=== PATIENT | female | born 1965 | race American Indian/Alaskan Native ===

== ENCOUNTER 2021-04-23 00:13 | Emergency (ER) | payer SELFPAY ==
[2021-04-23] MEDS ORDERED: SODIUM CHLORIDE 0.9% 1000 ML 1,000 ML IV ONE (02:22)
[2021-04-23 02:58] LABS: Basophils % (Auto) 0.4 % (0.0-1.8); Eosinophils # (Auto) 0.1 K/mm3 (0.0-0.4); Eosinophils % (Auto) 2.2 % (0.0-4.3); Hematocrit 41.8 % (30.3-42.9); Hemoglobin 13.8 gm/dl (10.1-14.3); Lymphocytes % (Auto) 38.1 % (13.4-35.0); Mean Corpuscular HGB Conc 33 % (30-34); Mean Corpuscular Volume 91 fl (79-97); Monocytes # (Auto) 0.3 K/mm3 (0.0-0.8); Monocytes % (Auto) 6.3 % (0.0-7.3); Platelet Count 234 K/mm3 (140-440); Red Blood Count 4.61 M/mm3 (3.65-5.03); Red Cell Distribution Width 13.8 % (13.2-15.2)
--- NOTE | 2021-04-23 03:01 | Cat Scan Report ---
CT head/brain wo con INDICATION / CLINICAL INFORMATION: Seizure vs Syncope. TECHNIQUE: Axial CT imaging of the brain was obtained without contrast. Coronal and sagittal reformatted imaging obtained and reviewed. All CT scans at this location are performed using CT dose reduction for ALAR A by means of automated exposure control. COMPARISON: None available. FINDINGS: No intracranial hemorrhage, mass or midline shift is noted. No extra-axial fluid collection or sugges tion of acute territorial infarction. Ventricular system and basilar cisterns are unremarkable. Visualized paranasal sinuses and mastoid air cells are well aerated and clear. IMPRESSION: 1. Negative noncontrasted head CT. Signer Name: Gisela Marquez MD Signed: 04/23/2021 2:57 AM Workstation Name: [id number]
[2021-04-23 03:13] LABS: Blood Urea Nitrogen 13 mg/dL (7-17); Calcium 8.5 mg/dL (8.4-10.2); Hemolysis Index 7
[2021-04-23 03:15] LABS: BUN/Creatinine Ratio 19
[2021-04-23] MEDS ORDERED: levETIRAcetam 1000 MG/NS 0.75% 1,000 MG/100 ML BAG IV ONE (04:12)
[2021-04-23] MEDS ORDERED: KETOROLAC 30 MG/1 ML INJ IV ONE (04:12)
--- NOTE | 2021-04-23 04:19 | Emergency Department Report ---
ED Seizure HPI - General Chief Complaint: Medical Clearance Stated Complaint: FEELING UNWELL Time Seen by Provider: 04/23/21 02:14 Source: EMS Mode of arrival: Stretcher Limitations: Language Barrier - History of Present Illness Initial Comments: Patient is a 55-year-old female who is presenting with syncope versus seizure. Patient states she was at [facility] when shopping and felt fine at that time. When she got back to the house she put some things in refrigerator and then the next thing she remembers is being surrounded by his multiple family members. Apparently her son tried to give [id number] resuscitation. Patient states she has never had a seizure before. Only medical problem the patient states she has had a symptoms that she is went to the ER approximately 4 times in her life for some chest pain. She has no definitive diagnosis. States she did have some chest discomfort today. Is also complaining of some achiness in her lower back. Patient was told by family member after she was more coherent that she may have had a seizure. No injury to the tongue no urinary incontinence. - Related Data Previous Rx's Medication Instructions Recorded Last Taken Type levETIRAcetam [Keppra TAB] 500 mg PO BID #60 tablet 04/23/21 Unknown Rx Allergies Allergy/AdvReac Type Severity Reaction Status Date / Time No Known Allergies Allergy Verified 04/23/21 00:16 ED Review of Systems ROS: Stated complaint: FEELING UNWELL Other details as noted in HPI Comment: All other systems reviewed and negative ED Past Medical Hx - Past Medical History Previous Medical History?: No - Medications Home Medications: Home Medications Medication Instructions Recorded Confirmed Last Taken Type levETIRAcetam [Keppra TAB] 500 mg PO BID #60 tablet 04/23/21 Unknown Rx ED Physical Exam - General Limitations: Language Barrier General appearance: alert, in no apparent distress - Head Head exam: Present: atraumatic, normocephalic - Eye Eye exam: Present: normal appearance - ENT ENT exam: Present: mucous membranes moist - Neck Neck exam: Present: normal inspection - Respiratory Respiratory exam: Present: normal lung sounds bilaterally. Absent: respiratory distress, wheezes, rales, rhonchi - Cardiovascular Cardiovascular Exam: Present: regular rate, normal rhythm, normal heart sounds. Absent: systolic murmur, diastolic murmur, rubs, gallop - GI/Abdominal GI/Abdominal exam: Present: soft, normal bowel sounds. Absent: distended, tenderness, guarding, rebound - Extremities Exam Extremities exam: Present: normal inspection - Back Exam Back exam: Present: normal inspection - Neurological Exam Neurological exam: Present: alert, oriented X3 - Psychiatric Psychiatric exam: Present: normal affect, normal mood - Skin Skin exam: Present: warm, dry, intact, normal color. Absent: rash ED Course Vital Signs 04/23/21 04/23/21 04/23/21 00:16 02:10 02:11 Temperature 98.6 F 98.0 F Pulse Rate 85 74 70 Respiratory 16 20 18 Rate Blood Pressure Blood Pressure 135/78 123/71 [Left] O2 Sat by Pulse 99 100 Oximetry 04/23/21 04/23/21 04/23/21 02:16 02:30 02:54 Temperature Pulse Rate 69 66 66 Respiratory 19 16 20 Rate Blood Pressure 133/73 129/78 Blood Pressure [Left] O2 Sat by Pulse 98 100 99 Oximetry 04/23/21 04/23/21 04/23/21 03:00 03:16 03:30 Temperature Pulse Rate 65 72 71 Respiratory 19 21 22 Rate Blood Pressure Blood Pressure [Left] O2 Sat by Pulse 99 98 99 Oximetry 04/23/21 04/23/21 04/23/21 03:46 04:00 04:16 Temperature Pulse Rate 66 65 65 Respiratory 19 10 L 25 H Rate Blood Pressure 129/78 Blood Pressure [Left] O2 Sat by Pulse 99 100 100 Oximetry 04/23/21 04:31 Temperature Pulse Rate 69 Respiratory 21 Rate Blood Pressure 133/73 Blood Pressure [Left] O2 Sat by Pulse 99 Oximetry ED Medical Decision Making - Lab Data Result diagrams: 04/23/21 02:44 04/23/21 02:44 Lab Results 04/23/21 04/23/21 04/23/21 Range/Units 02:44 02:44 02:44 WBC 5.3 (4.5-11.0) K/mm3 RBC 4.61 (3.65-5.03) M/mm3 Hgb 13.8 (10.1-14.3) gm/dl Hct 41.8 (30.3-42.9) % MCV 91 (79-97) fl MCH 30 (28-32) pg MCHC 33 (30-34) % RDW 13.8 (13.2-15.2) % Plt Count 234 (140-440) K/mm3 Lymph % (Auto) 38.1 H (13.4-35.0) % [place] % (Auto) 6.3 (0.0-7.3) % Eos % (Auto) 2.2 (0.0-4.3) % Baso % (Auto) 0.4 (0.0-1.8) % Lymph # (Auto) 2.0 (1.2-5.4) K/mm3 [place] # (Auto) 0.3 (0.0-0.8) K/mm3 Eos # (Auto) 0.1 (0.0-0.4) K/mm3 Baso # (Auto) 0.0 (0.0-0.1) K/mm3 Seg Neutrophils % 53.0 (40.0-70.0) % Seg Neutrophils # 2.8 (1.8-7.7) K/mm3 Sodium 138 (137-145) mmol/L Potassium 3.7 (3.6-5.0) mmol/L Chloride 103.7 (98-107) mmol/L Carbon Dioxide 26 (22-30) mmol/L Anion Gap 12 mmol/L BUN 13 (7-17) mg/dL Creatinine 0.7 (0.6-1.2) mg/dL Estimated GFR > 60 ml/min BUN/Creatinine Ratio 19 % Glucose 111 H (65-100) mg/dL Calcium 8.5 (8.4-10.2) mg/dL Plasma/Serum Alcohol < 0.01 (0-0.07) % - Radiology Data CT head/brain wo con INDICATION / CLINICAL INFORMATION: Seizure vs Syncope. TECHNIQUE: Axial CT imaging of the brain was obtained without contrast. Coronal and sagittal reformatted imaging obtained and reviewed. All CT scans at this location are performed using CT dose reduction for ALARA by means of automated exposure control. COMPARISON: None available. FINDINGS: No intracranial hemorrhage, mass or midline shift is noted. No extra-axial fluid collection or suggestion of acute territorial infarction. Ventricular system and basilar cisterns are unremarkable. Visualized paranasal sinuses and mastoid air cells are well aerated and clear. IMPRESSION: 1. Negative noncontrasted head CT. Signer Name: Gisela Marquez MD Signed: 04/23/2021 2:57 AM Workstation Name: [id number] - Medical Decision Making Patient 55-year-old female who is presenting with seizure versus syncope. Head CT is normal. Patient is back to her baseline. Patient states she has been rather stressed with some situation with her children for the last 2 weeks. She is also been sleep deprived. This may be a potential cause of the patient's seizure. Patient was loaded with Keppra. Patient stable for discharge and follow-up with neurology Critical care attestation.: If time is entered above; I have spent that time in minutes in the direct care of this critically ill patient, excluding procedure time. ED Disposition Clinical Impression: Seizure, Sleep deprivation Disposition: 01 HOME / SELF CARE / HOMELESS Is pt being admited?: No Does the pt Need Aspirin: No Condition: Stable Instructions: Non-Epileptic Seizures, Adult Prescriptions: levETIRAcetam [Keppra TAB] 500 mg PO BID #60 tablet Referrals: GE HINOJOSA MD [Referring] - 3-5 Days Time of Disposition: 05:31
[2021-04-23 05:45] VITALS: BP 129/78
--- NOTE | 2021-04-23 14:43 | Electrocardiograph Report ---
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
== END 2021-04-23 05:45 | disposition home or self-care (01) ==
LOC: ED 00:13
DX: R56.9 Unspecified convulsions (principal); Z72.820 Sleep deprivation; Z79.899 Other long term (current) drug therapy
CPT/HCPCS: 36415; 70450; 80048; 85025; 93005; 93010; 96361; 96374; 96375; 99284; J1885; J1953; J7030; 80320; 96365; Q0162; G0480